=== PATIENT | female | born 1955 | race Caucasian/White ===

== ENCOUNTER 2016-12-13 14:41 | Emergency (ER) | payer SELFPAY ==
[~2016-12-13] VITALS: Ht 157.5 cm; Wt 70.6 kg
[2016-12-13 15:09] VITALS: BP 110/64
[2016-12-13] MEDS ORDERED: ONDANSETRON ODT 4 MG PO ONE (15:30)
[2016-12-13] MEDS ORDERED: KETOROLAC 30 MG/1 ML IM ONE (15:30)
[2016-12-13] MEDS ORDERED: ONDANSETRON ODT 4 MG ONE (15:37)
[2016-12-13] MEDS ORDERED: KETOROLAC 30 MG/1 ML ONE (15:37)
== END 2016-12-13 17:07 | disposition home or self-care (01) ==
LOC: ED 16:45
DX: S16.1XXA Strain of muscle, fascia and tendon at neck level, initial encounter (principal); S33.5XXA Sprain of ligaments of lumbar spine, initial encounter; V49.9XXA Car occupant (driver) (passenger) injured in unspecified traffic accident, initial encounter; Y93.89 Activity, other specified; Y99.8 Other external cause status; Y92.488 Other paved roadways as the place of occurrence of the external cause
CPT/HCPCS: 72020; 72050; 72110; 96372; 99284; J1885; Q0162

== ENCOUNTER → 2017-03-10 | Outpatient (CLI) | payer OTHER | END | disposition home or self-care (01) | LOC: CFH 15:35 | PROVIDERS: ATTEND Nurse Practitioner Primary Care | DX: M22.41 Chondromalacia patellae, right knee (principal); M25.461 Effusion, right knee; G89.29 Other chronic pain; M85.88 Other specified disorders of bone density and structure, other site; F06.31 Mood disorder due to known physiological condition with depressive features; K21.9 Gastro-esophageal reflux disease without esophagitis; Z87.898 Personal history of other specified conditions ==

== ENCOUNTER → 2018-03-01 | Outpatient (CLI) | payer OTHER | END | disposition home or self-care (01) | LOC: CFH 07:39 | PROVIDERS: ATTEND Nurse Practitioner Primary Care | DX: Z12.31 Encounter for screening mammogram for malignant neoplasm of breast (principal) | CPT/HCPCS: 77063; 77067 ==

== ENCOUNTER → 2019-01-11 | Outpatient (CLI) | payer OTHER | END | disposition home or self-care (01) | LOC: CFH 07:16 | PROVIDERS: ATTEND Nurse Practitioner Primary Care | DX: K76.0 Fatty (change of) liver, not elsewhere classified (principal); K82.4 Cholesterolosis of gallbladder; E83.110 Hereditary hemochromatosis; E04.1 Nontoxic single thyroid nodule; E03.9 Hypothyroidism, unspecified; R53.83 Other fatigue | CPT/HCPCS: 76700 ==

== ENCOUNTER 2019-05-31 08:23 | Outpatient (CLI) | payer OTHER | END 2019-05-31 23:59 | disposition home or self-care (01) | LOC: CFH 08:23 | PROVIDERS: ATTEND Nurse Practitioner Primary Care | DX: M81.0 Age-related osteoporosis without current pathological fracture (principal); E03.9 Hypothyroidism, unspecified; E83.110 Hereditary hemochromatosis; R53.83 Other fatigue; E83.19 Other disorders of iron metabolism; R06.83 Snoring; Z79.899 Other long term (current) drug therapy | CPT/HCPCS: 77080 ==

== ENCOUNTER 2019-07-08 06:21 | Outpatient (CLI) | payer OTHER ==
[~2019-07-08] VITALS: Ht 160 cm; Wt 68.4 kg
[2019-07-08 07:15] VITALS: BP 108/76
[2019-07-08] MEDS ORDERED: PROG100C16 PO (07:34)
[2019-07-08] MEDS ORDERED: ESTR0.5T3 PO (07:34)
[2019-07-08] MEDS ORDERED: NALT50TA PO (07:34)
[2019-07-08] MEDS ORDERED: THYR60TA PO (07:34)
[2019-07-08] MEDS ORDERED: COSYNTROPIN 0.25 MG IVPush ONE (08:00)
[2019-07-08 09:20] VITALS: BP 113/75
== END 2019-07-08 23:59 | disposition home or self-care (01) ==
LOC: INFUSION 06:21
PROVIDERS: ATTEND Nurse Practitioner Primary Care
DX: R53.83 Other fatigue (principal); E03.9 Hypothyroidism, unspecified; E83.110 Hereditary hemochromatosis; M81.0 Age-related osteoporosis without current pathological fracture; Z79.899 Other long term (current) drug therapy
CPT/HCPCS: 36415; 36591; 82533; 96374; J0834

== ENCOUNTER 2019-07-15 08:04 | Outpatient (CLI) | payer OTHER ==
[~2019-07-15 08:04] MED LIST: ESTR0.5T3 PO; NALT50TA PO; PROG100C16 PO; THYR60TA PO
== END 2019-07-15 23:59 | disposition home or self-care (01) ==
LOC: CFH 08:04
PROVIDERS: ATTEND Internal Medicine Gastroenterology
DX: R10.13 Epigastric pain (principal); K57.30 Diverticulosis of large intestine without perforation or abscess without bleeding; K82.4 Cholesterolosis of gallbladder; Z88.1 Allergy status to other antibiotic agents
CPT/HCPCS: 76700

== ENCOUNTER → 2020-03-19 | Outpatient (CLI) | payer OTHER | END | disposition home or self-care (01) | LOC: CFH 08:25 | PROVIDERS: ATTEND Nurse Practitioner Primary Care | DX: Z12.31 Encounter for screening mammogram for malignant neoplasm of breast (principal) | CPT/HCPCS: 77063; 77067 ==